=== PATIENT | male | born 1975 | race Caucasian/White ===

== ENCOUNTER 2024-10-19 09:18 | Emergency (ER) | payer MEDICAID ==
[~2024-10-19] VITALS: Ht 193 cm; Wt 102.3 kg
[2024-10-19] MEDS ORDERED: IOHEXOL 350 MG/ML 100 ML VIAL ONE (09:56)
[2024-10-19] MEDS ORDERED: SODIUM CHLORIDE 0.9% 100 ML ONE (09:56)
[2024-10-19 10:00] LABS: PLATELET COUNT (AUTO) 199 K/uL (150-450); RED BLOOD CELL COUNT(AUTO) 5.67 MIL/uL (4.50-5.90); RED CELL DISTRIBUTION WIDTH 14.0 % (11.5-14.5); WHITE BLOOD COUNT (AUTO) 6.5 K/uL (4.5-11.0)
[2024-10-19 10:07] LABS: CALCIUM, TOTAL 8.4 mg/dL (8.8-10.5); CREATININE 0.96 mg/dL (0.60-1.30); GLOMERULAR FILTR. RATE CALC > 60 mL/min (>60); GLUCOSE,RANDOM 91 mg/dL (70-110); SODIUM SERUM 143 mmol/L (136-145); UREA NITROGEN, BLOOD 11 mg/dL (7-18)
[2024-10-19 10:12] LABS: ASPARTATE AMINOTRANSFERASE 12 U/L (15-37); TOTAL PROTEIN, SERUM 7.3 g/dL (6.4-8.2)
[2024-10-19 11:03] LABS: APPEARANCE,URINE HAZY (CLEAR); GLUCOSE, URINE (UA) NEGATIVE (NEGATIVE); LEUKOCYTE ESTERASE ,URINE NEGATIVE (NEGATIVE); NITRATE,URINE NEGATIVE (NEGATIVE); OCCULT BLOOD,URINE NEGATIVE (NEGATIVE); SPECIFIC GRAVITIY, URINE 1.020 (1.003-1.030)
[2024-10-19 11:38] VITALS: TEMP 98.1
[2024-10-19 11:39] VITALS: BP 154/91; PULSE 67; RESP 18; O2SAT 99
[2024-10-19] MEDS ORDERED: IBUP-1492 PO (11:39)
[2024-10-19] MEDS: IBUPROFEN 600 MG TABLET PO ONE (11:43)
== END 2024-10-19 11:57 | disposition home or self-care (01) ==
LOC: EMS 09:22
DX: S39.011A Strain of muscle, fascia and tendon of abdomen, initial encounter (principal); I10 Essential (primary) hypertension; F12.90 Cannabis use, unspecified, uncomplicated; X58.XXXA Exposure to other specified factors, initial encounter; Y93.89 Activity, other specified; Y92.89 Other specified places as the place of occurrence of the external cause; Y99.0 Civilian activity done for income or pay
CPT/HCPCS: 99285; 74177; 80053; 81003; 85025; 36415; Q9967; J7050